=== PATIENT | male | born 1990 | race Caucasian/White ===

== ENCOUNTER 2018-05-15 11:35 | Emergency (ER) | payer MEDICAID, OTHER ==
[~2018-05-15] VITALS: Ht 162.6 cm; Wt 79.1 kg
[2018-05-15 11:37] VITALS: BP 122/73
[2018-05-15] MEDS ORDERED: KETOROLAC 30 MG/1 ML ONE (12:17)
[2018-05-15] MEDS ORDERED: METHOCARBAMOL 750 MG TABLET ONE (12:17)
[2018-05-15] MEDS ORDERED: METHOCARBAMOL 750 MG TABLET PO ONE (12:30)
[2018-05-15] MEDS ORDERED: KETOROLAC 30 MG/1 ML IM ONE (12:30)
--- NOTE | 2018-05-15 13:00 | NUR ---
PT STATES HE'S FEELING BETTER, LESS PAIN AND MUSCLE SPASM AT THIS TIME. RATES PAIN AT 7/10, DOWN FROM 10/10 PRIOR TO MEDS.
--- NOTE | 2018-05-15 13:47 | NUR ---
CONTINUE TO AWAIT RAD DELAY. RAD CALLED, RADIOLOGIST IN PROCEDURES.
== END 2018-05-15 13:59 | disposition home or self-care (01) ==
LOC: ED 13:06
DX: S16.1XXA Strain of muscle, fascia and tendon at neck level, initial encounter (principal); V49.49XA Driver injured in collision with other motor vehicles in traffic accident, initial encounter; Y93.89 Activity, other specified; Y92.89 Other specified places as the place of occurrence of the external cause; Y99.8 Other external cause status
CPT/HCPCS: 72020; 72050; 96372; 99283; J1885